=== PATIENT | male | born 1985 | race Caucasian/White ===

== ENCOUNTER 2022-11-25 09:43 | Emergency (ER) | payer OTHER, SELFPAY ==
[2022-11-25 09:56] VITALS: BP 127/98; PULSE 106; RESP 18; TEMP 36.8; O2SAT 99; BMI 27.4
--- NOTE | 2022-11-25 10:30 | ED_ITS ---
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 There is a question whether it was more of a darkish nature, he called the nursing line and they we told him to come in to be seen as they are worried about dehydration. No past history of any GI bleeds denies any significant abdominal pain associated with this, no history of alcohol use or other significant risk factors he does have a history of reflux, does take Pepcid for this. His daughter was sick with a similar type illness earlier this week. 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 Denies a fevers chills and dysuria frequency no recent use of antibiotics in the last 3 months but is fighting some sinus issues currently. MD elicited complaint: nausea, vomiting and diarrhea Description of vomiting: watery and coffee grounds (?) Description of diarrhea: watery Associated nausea: Yes Associated abdominal pain: Yes Location of pain: none Associated symptoms: denies other symptoms Related Data Home Medications Medication Instructions Recorded Confirmed citalopram 20 mg tablet 20 mg PO QDAY 10/04/22 11/15/22 fluticasone propionate 50 ml intranasal 11/15/22 11/15/22 mcg/actuation nasal spray,suspension Allergies Allergy/AdvReac Type Severity Reaction Status Date / Time Sulfa (Sulfonamide Allergy Unknown Verified 11/15/22 09:30 Antibiotics) Review of Systems Status of ROS: Reports: 10 or more systems reviewed and unremarkable except as noted in History and below GI: Reports: nausea PFSH PFSH Social History Smoking Status: Never smoker Do you use any of these nicotine containing products: None Second hand tobacco smoke exposure: No How often do you have a drink containing alcohol: 2-3 times a week How many standard drinks containing alcohol do you have on a typical day: 1 or 2 How often do you have six or more drinks on one occasion: Less than monthly AUDIT-C Alcohol total score: 4 Non-prescribed substance use: denies use service: No Exam Narrative: Exam Narrative: Patient is speaking normally,no problem with slurring words, oriented x3. Head eyes ears nose and throat exam show equal pupils, no scleral icterus, extraocular muscles are normal, no facial droop, speech is normal, trachea n ormal and midline. Thyroid normal midline palpable not enlarged. Chest shows symmetrical rise bilaterally, normal auscultation with no wheezes, no increased work of breathing, no overt bruising or lesions seen, no tenderness is noted on auscultation. Heart sounds normal with no S3-S4 no murmurs clicks or gallops. Abdomen shows no obvious masses or hepatosplenomegaly, no organomegaly, bowel sounds are normal in all quadrants. No tenderness is noted also in all quadrants. Upper and lower extremities show normal power, normal range of motion, pulses are normal, sensations normal, fine motor movements are normal, pelvis is stable to rocking. Cervical spine shows normal range of motion, and palpably not tender. Thoracic spine shows normal range of motion, and palpably not tender, lumbar spine shows no tenderness to palpation percussion and is otherwise normal range of motion. Skin shows no rashes, petechiae or eccymosis. Const: Vital Signs, click to edit/add: Vital Signs - 24 hr 11/25/22 09:56 11/25/22 13:05 Temperature 98.2 F Pulse Rate [Right Pulse Oximeter] 106 H 90 Respiratory Rate 18 18 Blood Pressure [Ri ght Upper Arm] 127/98 H 119/79 Pulse Oximetry 99 100 Oxygen Delivery Me thod Room Air Room Air Course Course Hospital Course: Patient has done well no further vomiting, nausea is also called, I went back in to talk him after 2 L of fluid reviewed the laboratory work which was all reassuring. I think he should be off work for the next couple days, Zofran for discomfort. He develops abdominal pain worsening nausea vomiting or diarrhea to come back and be seen. He did not check him for C diff is he has not been on antibiotics and no past history. But if this is been ongoing then I think I would consider that also. Given the fact that within his family this is going around think it unlikely that that is the cause. I will have him stop the Celexa while he takes the Zofran, even though his EKG years was otherwise normal. Vital Signs Vital signs: Initial Vital Signs Temperature 98.2 F 11/25/22 09:56 Temperature Source Temporal Artery Scan 11/25/22 09:56 Pulse Rate 106 H 11/25/22 09:56 Respiratory Rate 18 11/25/22 09:56 Blood Pressure 127/98 H 11/25/22 09:56 Blood Pressure Mean 107 11/25/22 09:56 Blood Pressure Position Sitting 11/25/22 09:56 Pulse Oximetry 99 11/25/22 09:56 Oxygen Delivery Method 11/25/22 09:56 Vital Signs Temperature 98.2 F 11/25/22 09:56 Pulse Rate 106 H 11/25/22 09:56 Respiratory Rate 18 11/25/22 09:56 Blood Pressure 127/98 H 11/25/22 09:56 Pulse Oximetry 99 11/25/22 09:56 Oxygen Delivery Method 11/25/22 09:56 Temperature 98.2 F 11/25/22 09:56 Pulse Rate 90 11/25/22 13:05 Respiratory Rate 18 11/25/22 13:05 Blood Pressure 119/79 11/25/22 13:05 Pulse Oximetry 100 11/25/22 13:05 Oxygen Delivery Method 11/25/22 13:05 MDM - Nausea/Vomiting/Diarrhea MDM Narrative Medical decision making narrative: Differential diagnosis considered include but not limited to viral gastroenteritis, food poisoning, bowel obstruction, Clostridium difficile, Campylobacter, Shigella, rotavirus, medication side effects, dysentery, diverticulitis, Crohn's disease and colitis Differential diagnosis includes but is not limited to viral gastroenteritis, drug food poisoning, pyloric stenosis, gastritis, pancreatitis, hepatitis, cholecystitis, appendicitis, bowel obstruction, hyperemesis, cyclic vomiting syndrome, bulimia nervosa, migraine headache, motion sickness and medication side effect. These include the life threatening complications of appendicitis, drug food poisoning and bowel obstruction. Medical Records Attestation: I reviewed the patient's medical records. Lab Data Attestation: I reviewed the patient's lab results. Labs: Lab Results 11/25/22 11/25/22 11/25/22 Range/Units 10:35 10:35 10:40 WBC 6.20 (4.50-11.00) K/uL RBC 4.68 (4.30-5.90) m/uL Hgb 14.0 (13.5-17.5) gm/dL Hct 40.0 (37.0-53.0) % MCV 86 (80-100) fL MCH 30 (26-34) pg MCHC 35 (32-36) gm/dL RDW Coeff of Ana María 11.5 (11.5-15.5) % Plt Count 469 H (140-440) K/uL Neut % (Auto) 69.7 (42.0-72.0) % Lymph % (Auto) 18.9 L (20-44) % [place] % (Auto) 10.6 (0.0-11.0) % Eos % (Auto) 0.0 (0.0-7.0) % Baso % (Auto) 0.2 (0.0-3.0) % Neut # (Auto) 4.32 (1.7-7.0) K/uL Lymph # (Auto) 1.20 (0.90-2.90) K/uL [place] # (Auto) 0.70 (0.00-0.90) K/UL Eos # (Auto) 0.00 (0.00-0.50) K/uL Baso # (Auto) 0.01 (0.00-0.30) K/uL Sodium 135 (135-149) mmol/L Potassium 3.8 (3.6-5.1) mmol/L Chloride 101 (96-114) mmol/L Carbon Dioxide 25 (20-32) mmol/L BUN 19 (5-24) mg/dL Creatinine 1.0 (0.5-1.5) mg/dL Estimated Creat Clear 98.80 Estimated GFR 100 ml/min Glucose 124 H (60-115) mg/dL Calcium 9.0 (8.4-10.6) mg/dL SARS-CoV-2 (PCR) Negative SARS-CoV-2 (Negative) Influenza Type A (PCR) Negative PCR FLU A (Negative) Influenza Type B (PCR) Negative PCR FLU B (Negative) RSV (PCR) Negative PCR RSV (Negative) ECG Data Attestation: I personally reviewed and interpreted this ECG as follows: ECG interpretation date: 11/25/22 Interpretation: EKG shows normal sinus rhythm with a ventricular rate of 88, no acute ST wave changes, QRS QT and IA intervals are normal. Discharge Plan Discharge Clinical Impression: Gastroenteritis, Vomiting Patient Disposition: Home w/ Parent or Adult Instructions: Acute Nausea and Vomiting (ED), Acute Diarrhea (ED) Additional Instructions: Home rest use of medications as directed, Zofran for the nausea vomiting, hold off on taking her Celexa for the next couple days as there is an interaction with the Zofran ongoing. Clear fluids for the next 24 hours, then increasing to brat diet (bananas, rice, applesauce, toast), then restarted at the normal dosage. Note for work written. Return if signs and symptoms of worsening. Activity Level: No Restrictions Discharge Diet: Clear Liquid Prescriptions: No Action citalopram 20 mg tablet 20 mg PO QDAY Label Comments: TAKE 1 TABLET (20 MG) BY MOUTH EVERY MORNING. fluticasone propionate 50 mcg/actuation spray,suspension intranasal Follow Up/Referrals: Provider,Not a Local [Referring] - Stand Alone Forms: [facility] Info Instructions
[2022-11-25] MEDS: 0.9 % SODIUM CHLORIDE 1000 ml 1,000 ML IV ×2 (10:37→11:19)
[2022-11-25] MEDS: ONDANSETRON 2 MG/ML inj 4 MG IVP (10:37)
[2022-11-25 10:48] LABS: Basophils Absolute Auto 0.01 K/uL (0.00-0.30); Basophils Percent Auto 0.2 % (0.0-3.0); Immature Granulocytes Abs Auto 0.04 K/uL (0.00-0.30); Immature Granulocytes Pct Auto 0.6 %; Lymphocytes Percent Auto 18.9 % (20-44); Mean Corpuscular HGB Conc 35 gm/dL (32-36); Mean Corpuscular Hemoglobin 30 pg (26-34); Mean Corpuscular Volume 86 fL (80-100); Monocytes Percent Auto 10.6 % (0.0-11.0); Neutrophils Absolute Auto 4.32 K/uL (1.7-7.0); Neutrophils Percent Auto 69.7 % (42.0-72.0); Platelet Count* 469 K/uL (140-440); RDW Coefficient of Variation % 11.5 % (11.5-15.5); Red Blood Count 4.68 m/uL (4.30-5.90)
[2022-11-25 11:00] LABS: Slide Review Reflex No
[2022-11-25 11:14] LABS: Chloride* 101 mmol/L (96-114); Potassium* 3.8 mmol/L (3.6-5.1); Sodium* 135 mmol/L (135-149)
--- NOTE | 2022-11-25 11:14 | ED.NURSE ---
patient is feeling a little better and more human per patient. has not gone to the bathroom yet asking Dr. Portillo for another liter of fluids.
[2022-11-25 11:16] LABS: Estimated Glomerular Filt Rate 100 ml/min
[2022-11-25 11:17] LABS: Blood Urea Nitrogen* 19 mg/dL (5-24); Carbon Dioxide* 25 mmol/L (20-32); Glucose* 124 mg/dL (60-115)
[2022-11-25 11:32] LABS: PCR FLU A Negative PCR FLU A (Negative); PCR FLU B Negative PCR FLU B (Negative); PCR RSV Negative PCR RSV (Negative)
[2022-11-25 11:49] LABS: SARS PCR* Negative SARS-CoV-2 (Negative)
[2022-11-25 13:05] VITALS: BP 119/79; PULSE 90; RESP 18; O2SAT 100
== END 2022-11-25 13:57 | disposition home or self-care (01) ==
PROVIDERS: Emergency Provider Family Medicine; PCP Family Medicine
DX: K52.9 Noninfective gastroenteritis and colitis, unspecified (principal)
CPT/HCPCS: 36415; 80048; 81001; 85025; 87502; 87634; 87635; 93005; 96374; 99284; J2405; J7030